=== PATIENT | male | born 1990 | race Caucasian/White ===

== ENCOUNTER 2018-09-21 08:45 | Emergency (ER) | payer OTHER ==
[~2018-09-21] VITALS: Ht 172.7 cm; Wt 93.2 kg
[~2018-09-21 08:45] MED LIST: BACTRIM DS TAB1 EACH; NORCO 5-325 TA1 EACH PO; ONDANSETRON HCL4 M2 PO; ZPAK PO
[2018-09-21 09:09] LABS: ABSOLUTE EOSINOPHILS 0.2 thou/uL (0.0-0.7); ABSOLUTE LYMPHOCYTES 3.2 thou/uL (0.8-5.3); ABSOLUTE MONOCYTES 0.7 thou/uL (0.0-1.2); ABSOLUTE NEUTROPHILS 3.5 thou/uL (1.6-8.1); BASOPHILS 0.5 %; EOSINOPHILS 2.3 %; HEMATOCRIT 46.1 % (42.0-52.0); HEMOGLOBIN 15.5 gm/dL (14.0-18.0); LYMPHOCYTES 42.1 %; MCH 28.5 pg (26.0-34.0); MCHC 33.6 g/dL (28.0-37.0); MONOCYTES 9.1 %; MPV 7.5 fl. (7.2-11.1); NUCLEATED RBCS 0 /100WBC; PLATELET COUNT* 269 thou/uL (150-400); RBC 5.42 mil/uL (4.50-6.00); RDW-CV 12.4 % (10.5-14.5); WBC 7.7 thou/uL (4.0-11.0)
[2018-09-21 09:15] LABS: ANION GAP 9 mmol/L (7-16); BUN 22 mg/dL (7-18); CALCIUM 9.1 mg/dL (8.5-10.1); CHLORIDE 106 mmol/L (98-107); CO2 27 mmol/L (21-32); CREATININE 1.1 mg/dL (0.6-1.3); GLUCOSE 102 mg/dL (70-99); SODIUM 142 mmol/L (136-145)
[2018-09-21 09:25] LABS: ALBUMIN 4.3 g/dL (3.4-5.0); ALKALINE PHOSPHATASE 76 U/L (46-116); LIPASE 117 U/L (73-393); NT-PRO BRAIN NAT PEPTIDE 56 pg/mL (<300); SGOT 24 U/L (15-37); SGPT 28 U/L (30-65); TOTAL PROTEIN 7.9 g/dL (6.4-8.2); TROPONIN-I LEVEL <0.06 ng/mL (<0.06)
[2018-09-21 09:34] LABS: INR 1.1; PROTIME 10.9 Seconds (9.20-11.50)
[2018-09-21] MEDS ORDERED: NAPROSYN500 M1 PO (09:55)
[2018-09-21 10:02] VITALS: BP 126/78
--- NOTE | 2018-09-21 17:35 | EKG ---
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
== END 2018-09-21 10:02 | disposition home or self-care (01) ==
LOC: M.ERS 08:45
PROVIDERS: Emergency Medicine
DX: R07.89 Other chest pain (principal); I10 Essential (primary) hypertension; G43.909 Migraine, unspecified, not intractable, without status migrainosus; Z87.891 Personal history of nicotine dependence; Z88.0 Allergy status to penicillin; Z88.1 Allergy status to other antibiotic agents